=== PATIENT | male | born 1955 | race Caucasian/White ===

== ENCOUNTER 2022-02-15 05:36 | Day surgery (SDC) | payer BC, MEDICARE ==
[2022-02-12 13:02] VITALS: BMI 25.4
[2022-02-15] MEDS ORDERED: Heparin 10,000 UNITS/ 10 ML VIAL ONE ×2 (06:32→10:20)
[2022-02-15] MEDS ORDERED: Heparin 25,000 units/D5W 500 ML ONE (06:32)
[2022-02-15] MEDS ORDERED: Protamine Sulfate 50 MG/5 ML VIAL ONE (06:32)
[2022-02-15] MEDS ORDERED: Fentanyl 100 MCG/2 ML VIAL ONE ×2 (07:15→12:08)
[2022-02-15] MEDS ORDERED: Dexamethasone 20 MG/5 ML VIAL ONE (07:30)
[2022-02-15] MEDS ORDERED: PROPOFOL 200 MG/20 ML VIAL ONE (07:30)
[2022-02-15] MEDS ORDERED: ePHEDrine 50 MG/ML VIAL ONE (07:30)
[2022-02-15] MEDS ORDERED: Lidocaine 1% PF 5 ML VIAL ONE (07:30)
[2022-02-15] MEDS ORDERED: Phenylephrine 10 MG/ML VIAL ONE (07:30)
[2022-02-15] MEDS ORDERED: Rocuronium Bromide 10 MG/ML (10ML VIAL) ONE (07:30)
[2022-02-15] MEDS ORDERED: Esmolol 100 MG/10 ML VIAL ONE (07:30)
[2022-02-15] MEDS ORDERED: Glycopyrrolate 0.2 MG/ML 5 ML SYRINGE ONE (07:30)
[2022-02-15] MEDS ORDERED: Ondansetron PF 4 MG/2 ML Vial ONE (07:30)
[2022-02-15] MEDS ORDERED: Propofol 500 MG/50 ML VIAL ONE (08:06)
[2022-02-15] MEDS ORDERED: Midazolam HCl 2 mg/2 ml Vial ONE (10:48)
[2022-02-15] MEDS ORDERED: HYDROcodone/Acetaminophen 5/325 mg Tablet ONE (13:32)
== END 2022-02-15 14:15 | disposition home or self-care (01) ==
LOC: SDC 05:36
PROVIDERS: ATTEND Internal Medicine Cardiovascular Disease
PROC: 02583ZZ Destruction of Conduction Mechanism, Percutaneous Approach (ICD-10-PCS; principal; 2022-02-15)
PROC: B246ZZ4 Ultrasonography of Right and Left Heart, Transesophageal (ICD-10-PCS; principal; 2022-02-15)
PROC: 5A2204Z Restoration of Cardiac Rhythm, Single (ICD-10-PCS; principal; 2022-02-15)
PROC: 02K83ZZ Map Conduction Mechanism, Percutaneous Approach (ICD-10-PCS; principal; 2022-02-15)
DX: I48.19 Other persistent atrial fibrillation (principal); I47.1 Supraventricular tachycardia; I48.92 Unspecified atrial flutter; I08.1 Rheumatic disorders of both mitral and tricuspid valves; F17.290 Nicotine dependence, other tobacco product, uncomplicated; Z79.01 Long term (current) use of anticoagulants; Z79.899 Other long term (current) drug therapy; Z88.8 Allergy status to other drugs, medicaments and biological substances
CPT/HCPCS: 85347; 93005; 93312; 93613; 93655; 93656; 93657; C1730; C1731; C1732; C1759; C1760; C1769; C1894; C2630; J1100; J1644; J2250; J2370; J2405; J2704; J2710; J2720; J3010; J3490